=== PATIENT | male | born 1950 | race Caucasian/White ===

== ENCOUNTER 2019-01-24 13:48 | Emergency (ER) | payer BC, MEDICARE ==
[~2019-01-24] VITALS: Ht 180.3 cm; Wt 130.9 kg
[~2019-01-24 13:48] MED LIST: ALLO300T2 PO; COLC0.6T69 PO; INDO25CA18 PO
[2019-01-24 14:41] LABS: BASOPHILS # (AUTO) 0.1 X10'3 (0-0.2); BASOPHILS % (AUTO) 0.9 % (0-1); EOSINOPHILS # (AUTO) 0.1 X10'3 (0-0.9); EOSINOPHILS % (AUTO) 1.3 % (0-6); HEMATOCRIT 49.4 % (42.0-52.0); HEMOGLOBIN 16.8 g/dl (14.0-17.9); LYMPHOCYTES # (AUTO) 2.5 X10'3 (1.1-4.8); LYMPHOCYTES % (AUTO) 22.5 % (21-51); MEAN CORPUSCULAR HEMOGLOBIN 31.2 PG (27.0-31.0); MEAN CORPUSCULAR VOLUME 91.7 FL (78-98); MEAN PLATELET VOLUME 8.1 FL (7.4-10.4); MONOCYTES # (AUTO) 1.3 X10'3 (0-0.9); MONOCYTES % (AUTO) 11.3 % (2-12); NEUTROPHILS # (AUTO) 7.1 X10'3 (1.8-7.7); PLATELET COUNT 259 X10'3 (140-440); RED BLOOD COUNT 5.39 X10'6 (4.70-6.10); RED CELL DISTRIBUTION WIDTH 13.6 % (11.5-14.5); WHITE BLOOD COUNT 11.1 X10'3 (4.5-11.0)
[2019-01-24 14:56] LABS: ALANINE AMINOTRANSFERASE 33 U/L (12-78); ALBUMIN 4.5 G/DL (3.4-5.0); ALBUMIN/GLOBULIN RATIO 1.2 (1.1-1.5); ALKALINE PHOSPHATASE 89 IU/L (46-116); ANION GAP 9 (8-16); ASPARTATE AMINO TRANSFERASE 20 U/L (10-37); BILIRUBIN,TOTAL 0.4 MG/DL (0.1-1.0); BLOOD UREA NITROGEN 29 MG/DL (7-18); BUN/CREATININE RATIO 15.3 (5.4-32.0); CALCIUM 9.2 MG/DL (8.5-10.1); CHLORIDE 105 MMOL/L (99-107); GLUCOSE 101 MG/DL (70-104); POTASSIUM 5.7 MMOL/L (3.5-5.1); SODIUM 135 MMOL/L (135-145); TOTAL CARBON DIOXIDE 21.5 MMOL/L (24-32); TOTAL PROTEIN 8.4 G/DL (6.4-8.2); eGFR 35 ML/MIN
[2019-01-24] MEDS ORDERED: albuterol 2.5 MG/3 ML nebule CONTNEB PRN (15:55)
[2019-01-24] MEDS ORDERED: normal saline 1000ML IV soln IVB ONE (15:55)
[2019-01-24] MEDS ORDERED: sodium polystyrene sulfonate 15gm/60ml oral suspension PO ONE (15:55)
[2019-01-24 17:42] LABS: ANION GAP 10 (8-16); CHLORIDE 107 MMOL/L (99-107); POTASSIUM 5.8 MMOL/L (3.5-5.1); SODIUM 137 MMOL/L (135-145); TOTAL CARBON DIOXIDE 20.5 MMOL/L (24-32)
[2019-01-24] MEDS ORDERED: calcium gluconate inj. 1 GM in normal saline 100ml IV soln 90 ML IV ONE (18:30)
--- NOTE | 2019-01-24 18:30 | NUR ---
Spoke to Dr. Thacker regarding increase in potassium level after treatment. He gives a verbal order for 1 gram of calcium gluconate.
[2019-01-24] MEDS ORDERED: INDO50CA14 PO (19:25)
[2019-01-24] MEDS ORDERED: GABA-532 PO (19:26)
[2019-01-24 19:31] VITALS: BP 148/72
[2019-01-24] MEDS ORDERED: dextrose 50%-water 50ml dispensing syringe IV STA (20:07)
[2019-01-24] MEDS ORDERED: insulin Lispro (HumaLOG) vial - multi-dose SQ STA (20:07)
[2019-01-24] MEDS ORDERED: sodium polystyrene sulfonate 15gm/60ml oral suspension PO STA (20:07)
[2019-01-24] MEDS ORDERED: normal saline 1000ml 1,000 ML IV SCH (20:12)
[2019-01-24] MEDS ORDERED: ondansetron/PF 4mg/2ml inj IV PRN (20:15)
[2019-01-24] MEDS ORDERED: potassium Cl 20 mEq SR tablet PO PRN ×2 (20:15)
[2019-01-24] MEDS ORDERED: magnesium 4gm in 100ml NS 100 ML IV PRN (20:15)
[2019-01-24] MEDS ORDERED: HYDROmorphone 1 mg/ml syringe IV PRN (20:15)
[2019-01-24] MEDS ORDERED: acetaminophen 325mg tablet PO PRN ×2 (20:15)
[2019-01-24] MEDS ORDERED: potassium CL 10mEq/100ml bag 100 ML IV PRN (20:15)
[2019-01-24] MEDS ORDERED: potassium Cl 40MEQ/NS 500ml 500 ML IV PRN (20:15)
[2019-01-24] MEDS ORDERED: magnesium 2GM in 50ml NS 50 ML IV PRN (20:15)
[2019-01-24] MEDS ORDERED: HYDROmorphone inj. 0.5 MG/0.5 ML DISP.SYRIN IV PRN (20:15)
[2019-01-24] MEDS ORDERED: mag hydrox/Alum hydrox/simeth 30ml oral suspension PO PRN (20:15)
[2019-01-24] MEDS ORDERED: magnesium hydroxide 30ml (MOM) UD suspension PO PRN (20:15)
[2019-01-24 20:43] LABS: ALANINE AMINOTRANSFERASE 31 U/L (12-78); ALBUMIN 3.9 G/DL (3.4-5.0); ALBUMIN/GLOBULIN RATIO 1.1 (1.1-1.5); ALKALINE PHOSPHATASE 76 IU/L (46-116); ANION GAP 10 (8-16); ASPARTATE AMINO TRANSFERASE 18 U/L (10-37); BILIRUBIN,TOTAL 0.3 MG/DL (0.1-1.0); BLOOD UREA NITROGEN 30 MG/DL (7-18); BUN/CREATININE RATIO 16.3 (5.4-32.0); CHLORIDE 109 MMOL/L (99-107); CREATININE 1.84 MG/DL (0.60-1.10); GLUCOSE 128 MG/DL (70-104); POTASSIUM 4.7 MMOL/L (3.5-5.1); SODIUM 138 MMOL/L (135-145); TOTAL CARBON DIOXIDE 19.4 MMOL/L (24-32); TOTAL PROTEIN 7.3 G/DL (6.4-8.2); eGFR 37 ML/MIN
[2019-01-25] MEDS ORDERED: heparin, porcine 5000 units/ml vial SQ SCH
[2019-01-25] MEDS ORDERED: albuterol 2.5 MG/3 ML nebule NEB SCH
[2019-01-25] MEDS ORDERED: K and/or MAG REPLACEMENT MC SCH (08:00)
[2019-01-25] MEDS ORDERED: gabapentin 300mg capsule PO SCH (08:00)
== END 2019-01-24 21:10 | disposition home or self-care (01) ==
LOC: ER 13:49 → ORTHO 4S 21:00 → UNDOADMIN 21:00 → ER 21:10 → UNDODISIN 21:10 → CMPBEDREQ 21:28
DX: E87.5 Hyperkalemia (principal); E86.0 Dehydration; I12.9 Hypertensive chronic kidney disease with stage 1 through stage 4 chronic kidney disease, or unspecified chronic kidney disease; N18.9 Chronic kidney disease, unspecified; N17.9 Acute kidney failure, unspecified; M10.9 Gout, unspecified; F17.200 Nicotine dependence, unspecified, uncomplicated; Z79.899 Other long term (current) drug therapy; Z98.890 Other specified postprocedural states
CPT/HCPCS: 36415; 71045; 80051; 80053; 84484; 85025; 93005; 94644; 94760; 96361; 96374; 99285; J0610; J7030; G0378

== ENCOUNTER 2020-08-29 07:23 | Emergency (ER) | payer BC ==
[~2020-08-29] VITALS: Ht 180.3 cm; Wt 118.2 kg
[~2020-08-29 07:23] MED LIST changes: -ALLO300T2 PO; -COLC0.6T69 PO; +GABA-532 PO; -INDO25CA18 PO; +INDO50CA96 PO
[2020-08-29 07:34] VITALS: BP 158/97
[2020-08-29] MEDS ORDERED: oxyCODONE 20 mg/ml concentrated oral syringe PO PRN (07:45)
[2020-08-29] MEDS ORDERED: HYDROcodone/acetaminophen 7.5MG/325MG per 15ml UD CUP PO ONE (09:05)
[2020-08-29] MEDS ORDERED: HYDR-3965 PO (20:15)
== END 2020-08-29 09:34 | disposition home or self-care (01) ==
LOC: ER 07:24
DX: K13.79 Other lesions of oral mucosa (principal); R51.9 Headache, unspecified; I10 Essential (primary) hypertension; M10.9 Gout, unspecified; Z98.890 Other specified postprocedural states; Z79.899 Other long term (current) drug therapy
CPT/HCPCS: 99283

== ENCOUNTER 2020-08-29 18:49 | Emergency (ER) | payer BC ==
[~2020-08-29] VITALS: Ht 180.3 cm; Wt 118.2 kg
[2020-08-29 18:57] VITALS: BP 136/86
[2020-08-29] MEDS ORDERED: HYDROcodone/acetaminophen 5mg/325mg tablet PO ONE (20:15)
[2020-08-29] MEDS ORDERED: HYDR-3965 PO (20:15)
== END 2020-08-29 20:24 | disposition home or self-care (01) ==
LOC: ER 18:49
DX: K13.79 Other lesions of oral mucosa (principal); I10 Essential (primary) hypertension; M10.9 Gout, unspecified; Z98.890 Other specified postprocedural states; Z79.899 Other long term (current) drug therapy
CPT/HCPCS: 99283